=== PATIENT | male | born 1985 | race Caucasian/White ===

== ENCOUNTER 2024-12-21 15:39 | Emergency (ER) | payer SELFPAY ==
[~2024-12-21] VITALS: Ht 152.4 cm; Wt 45.5 kg
[2024-12-21 15:58] VITALS: TEMP 98.4
[2024-12-21 16:21] LABS: GLUCOMETER DEV NAME(LOC) ER.7; GLUCOSE,POINT OF CARE 157 MG/DL (70-110)
[2024-12-21] MEDS ORDERED: BACI28.410 TP (17:28)
[2024-12-21] MEDS: BACITRACIN 0.9 GM PACKET OINTMENT TP ONE (17:30)
[2024-12-21 18:58] VITALS: BP 140/77; PULSE 93; RESP 18; O2SAT 98
== END 2024-12-21 19:10 | disposition home or self-care (01) ==
LOC: EMS 15:43
DX: T25.231A Burn of second degree of right toe(s) (nail), initial encounter (principal); T25.232A Burn of second degree of left toe(s) (nail), initial encounter; E11.9 Type 2 diabetes mellitus without complications; F20.9 Schizophrenia, unspecified; F12.90 Cannabis use, unspecified, uncomplicated; F17.210 Nicotine dependence, cigarettes, uncomplicated; X58.XXXA Exposure to other specified factors, initial encounter; Y93.89 Activity, other specified; Y92.89 Other specified places as the place of occurrence of the external cause; Y99.8 Other external cause status
CPT/HCPCS: 16020; 82962; 99282

== ENCOUNTER 2024-12-22 12:59 | Emergency (ER) | payer MEDICAID ==
[~2024-12-22] VITALS: Ht 152.4 cm; Wt 56.8 kg
[~2024-12-22 12:59] MED LIST: BACI28.410 TP
[2024-12-22 13:11] VITALS: TEMP 97.3
[2024-12-22 13:55] LABS: PLATELET COUNT (AUTO) 305 K/uL (150-450); RED BLOOD CELL COUNT(AUTO) 4.11 MIL/uL (4.50-5.90); RED CELL DISTRIBUTION WIDTH 13.8 % (11.5-14.5); WHITE BLOOD COUNT (AUTO) 4.9 K/uL (4.5-11.0)
[2024-12-22 14:13] LABS: CALCIUM, TOTAL 8.9 mg/dL (8.8-10.5); CREATININE 0.86 mg/dL (0.60-1.30); GLOMERULAR FILTR. RATE CALC > 60 mL/min (>60); GLUCOSE,RANDOM 181 mg/dL (70-110); SODIUM SERUM 140 mmol/L (136-145); UREA NITROGEN, BLOOD 11 mg/dL (7-18)
[2024-12-22 14:21] LABS: TROPONIN I-HIGH SENSITIVITY Less Than 4 ng/L (<76)
[2024-12-22 17:53] VITALS: BP 118/71; PULSE 91; RESP 18; O2SAT 97
== END 2024-12-22 18:03 | disposition home or self-care (01) ==
LOC: EMS 13:04
DX: Z00.8 Encounter for other general examination (principal); E11.9 Type 2 diabetes mellitus without complications; R07.9 Chest pain, unspecified; F12.90 Cannabis use, unspecified, uncomplicated; F17.210 Nicotine dependence, cigarettes, uncomplicated; F20.9 Schizophrenia, unspecified
CPT/HCPCS: 71045; 80048; 84484; 85025; 93005; 99285; 36415-L1; 36415-TC